=== PATIENT | female | born 1965 | race Caucasian/White ===

== ENCOUNTER 2016-07-27 08:19 | Outpatient (CLI) | payer BC | END 2016-07-27 19:47 | disposition home or self-care (01) | LOC: SUS 08:19 | PROVIDERS: ATTEND Family Medicine | DX: N60.01 Solitary cyst of right breast (principal); N63 Unspecified lump in breast | CPT/HCPCS: 76641 ==

== ENCOUNTER 2017-09-15 11:39 | Day surgery (SDC) | payer BC ==
[~2017-09-15] VITALS: Ht 162.6 cm; Wt 64.4 kg
[2017-09-15] MEDS ORDERED: KETOROLAC TROMETHAMINE 30 MG VIAL IVP ONE ×2 (13:15→14:15)
[2017-09-15] MEDS ORDERED: LR 1,000 ML IV.SOLN IV ONE (13:15)
[2017-09-15] MEDS ORDERED: fentaNYL CITRATE 250 MCG/5 ML AMP IV ONE (13:15)
[2017-09-15] MEDS ORDERED: MIDAZOLAM HCL 5 MG/5 ML VIAL IVP ONE (13:15)
[2017-09-15] MEDS ORDERED: PROPOFOL 200MG/ 20ML VIAL (DIPRIVAN) IV ONE (13:15)
[2017-09-15] MEDS ORDERED: LIDOCAINE MPF 0.5% 250 MG/50 ML VIAL INJ ONE (13:15)
[2017-09-15] MEDS ORDERED: DEXAMETHASONE SOD PHOSPHATE 4 MG/ML VIAL IVP ONE (13:15)
[2017-09-15] MEDS ORDERED: CEFAZOLIN 2 GM IVPB PREMIX 50 ML IV ONE (13:15)
[2017-09-15] MEDS ORDERED: ONDANSETRON HCL 4 MG/2 ML VIAL IVP ONE ×2 (13:15→14:15)
[2017-09-15] MEDS ORDERED: SEVOFLURANE 15 MIN GAS INH ONE (13:15)
[2017-09-15] MEDS ORDERED: MEPERIDINE HCL/PF 100 MG/ML AMP IM ONE (13:15)
[2017-09-15] MEDS ORDERED: POLYMYXIN 500,000/BACIT.10,000 UNITS in NS IRR 1 L IR ONE (13:29)
[2017-09-15] MEDS ORDERED: HYDROmorphone 1 MG INJ. 1 MG/ML AMPUL IVP PRN (14:15)
[2017-09-15] MEDS ORDERED: NALOXONE HCL 0.4 MG/ML AMP (NARCAN) IVP ONE (14:15)
[2017-09-15] MEDS ORDERED: fentaNYL CITRATE/PF 100 MCG/2 ML AMP IVP PRN (14:15)
[2017-09-15] MEDS ORDERED: MIDAZOLAM HCL 5 MG/5 ML VIAL IVP PRN (14:15)
[2017-09-15] MEDS ORDERED: MEPERIDINE HCL/PF 25 MG/ML DISP.SYRIN IVP PRN (14:15)
[2017-09-15] MEDS ORDERED: HYDROmorphone 2 MG/ML VIAL ONE (14:57)
[2017-09-15 15:34] VITALS: BP_SYST 116
== END 2017-09-15 17:21 | disposition home or self-care (01) ==
LOC: SDS 11:39 → SMU 11:41 → SDS 17:21
PROVIDERS: ATTEND Orthopaedic Surgery
DX: S82.841A Displaced bimalleolar fracture of right lower leg, initial encounter for closed fracture (principal); V92.09XA Drowning and submersion due to fall off unspecified watercraft, initial encounter; Y93.9 Activity, unspecified; Y92.89 Other specified places as the place of occurrence of the external cause; Y99.9 Unspecified external cause status; Z98.890 Other specified postprocedural states; E55.9 Vitamin D deficiency, unspecified; E78.5 Hyperlipidemia, unspecified; I10 Essential (primary) hypertension; Z79.899 Other long term (current) drug therapy
CPT/HCPCS: 27814; 76000; C1713 ×2; J0690; J1100; J1170; J1885; J2001; J2175; J2250; J2405; J2704; J3010; J7120